=== PATIENT | female | born 1965 | race Caucasian/White ===

== ENCOUNTER 2020-10-26 15:18 | Outpatient (REF) | payer BC, SELFPAY ==
--- NOTE | ~2020-10-26 | MM_ITS ---
EXAMINATION: MM SCREENING DIGITAL BREAST TOMOSYNTHESIS, BILATERAL CLINICAL INFORMATION: Screening. Asymptomatic. Family history breast cancer, mother. 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 The lifetime risk of breast cancer based on the Tyrer-Cuzick Model is 31%. COMPARISON: Mammography: 10/23/2018 and prior studies dating back to 05/03/2009. TECHNIQUE: Digital breast tomosynthesis is performed in both the craniocaudal and mediolateral oblique views along with computer-aided detection (CAD). Synthesized 2D images are generated from the tomosynthesis. FINDINGS: The breasts are heterogeneously dense, which may obscure small masses (ACR BI-RADS breast composition Category c). There is fibronodular parenchymal pattern similar to prior studies. Nodular asymmetry medial right breast on CC view 7 cm from nipple is similar to prior studies. There is some minor scarring again noted posterior upper right breast on MLO view. Neither breast shows developing density or interval mass or architectural abnormality. No abnormal calcifications. The axilla and skin contours are unremarkable. MM/MM tomosynthesis screening BI IMPRESSION: No significant changes from prior studies. ASSESSMENT: BI-RADS 2: Benign RECOMMENDATION: 1. Routine annual mammography screening. 2. The lifetime risk of breast cancer based on the Tyrer-Cuzick Model is 31%. Additional annual adjunct screening with breast MRI may be of benefit in women with a risk score of 20% or greater and dense breast parenchymal pattern on mammography. This patient's information was entered into a reminder system with a target due date for their next mammogram.
== END 2020-10-26 15:19 | disposition home or self-care (01) ==
LOC: HO.MAMMO 15:18
PROVIDERS: Visit Provider Internal Medicine
DX: Z12.31 Encounter for screening mammogram for malignant neoplasm of breast (principal)
CPT/HCPCS: 77063; 77067

== ENCOUNTER 2020-11-24 16:20 | Outpatient (REF) | payer BC, SELFPAY ==
--- NOTE | ~2020-11-24 | MR_ITS ---
EXAMINATION: MR BREAST WITHOUT AND WITH CONTRAST, BILATERAL CLINICAL INFORMATION: High-risk screening. COMPARISON: No previous breast MRI. TECHNIQUE: Imaging was performed with a dedicated breast coil. Prior to the administration of contrast, bilateral axial T1 and bilateral axial T2 weighted sequences were obtained. After the uneventful administration of?6.5 mL of Gadavist, dynamic contrast-enhanced VIBRANT series through the breasts in the axial plane were performed. Subtracted images were performed and reviewed. A delayed sagittal sequence through both breasts was acquired. Additionally, CAD post-processing, including maximum intensity projections, 3-D reconstructions and kinetic analysis, were performed an independent workstation and reviewed by the interpreting radiologist is a portion of this exam. FINDINGS: The patient demonstrates moderate background parenchymal enhancement. The images are limited by patient motion and technical factors. LEFT BREAST: No definite suspicious masslike or non-masslike enhancement. No abnormal skin thickening or nipple retraction. No abnormal architectural distortion. Review of the T2 weighted images demonstrates no fibrocystic changes or dilated ducts. Review of kinetic images reveals no additional findings. RIGHT BREAST: No definite suspicious masslike or non-masslike enhancement. No abnormal skin thickening or nipple retraction. No abnormal architectural distortion. Review of the T2 weighted images demonstrates no fibrocystic changes or dilated ducts. Review of kinetic images reveals no additional findings. There is no suspicious internal mammary chain or axillary adenopathy. Limited views of the chest and abdomen are unremarkable. MR/MR breast BI wo/w con IMPRESSION: Limited study. No MR specific evidence of malignancy. ASSESSMENT: LEFT BREAST: BI-RADS 1-Negative RIGHT BREAST: BI-RADS 1-Negative RECOMMENDATIONS: Clinical follow-up. Continued annual mammographic surveillance. Further breast MRI as risk factors dictate.
== END 2020-11-24 16:21 | disposition home or self-care (01) ==
LOC: HO.MRI 16:20
PROVIDERS: PCP Internal Medicine; Visit Provider Internal Medicine
DX: R92.2 Inconclusive mammogram (principal)
CPT/HCPCS: 77049; A9585

== ENCOUNTER 2022-04-03 15:51 | Outpatient (REF) | payer BC, SELFPAY ==
--- NOTE | ~2022-04-03 | MM_ITS ---
EXAMINATION: MM SCREENING DIGITAL BREAST TOMOSYNTHESIS, BILATERAL CLINICAL INFORMATION: Screening. Asymptomatic. Family history breast cancer, mother. COMPARISON: Mammography: 10/26/2020, 10/23/2018, 09/07/2017; bilateral breast MRI 11/24/2020. TECHNIQUE: Digital breast tomosynthesis is performed in both the craniocaudal and mediolateral oblique views along with computer-aided detection (CAD). Synthesized 2D images are generated from the tomosynthesis. FINDINGS: The breasts are heterogeneously dense, which may obscure small masses (ACR BI-RADS breast composition Category c). There are no significant masses, abnormal calcifications, or other abnormalities. Parenchymal pattern is similar to prior studies. There is no developing density or architectural abnormality. The axilla and skin contours are unremarkable. No significant changes. MM/MM tomosynthesis screening BI IMPRESSION: No mammographic evidence of malignancy. ASSESSMENT: BI-RADS 1: Negative RECOMMENDATION: Routine annual mammography screening. This patient's information was entered into a reminder system with a target due date for their next mammogram.
== END 2022-04-03 15:52 | disposition home or self-care (01) ==
LOC: HO.MAMMO 15:51
PROVIDERS: PCP Internal Medicine; Visit Provider Internal Medicine
DX: Z12.31 Encounter for screening mammogram for malignant neoplasm of breast (principal)
CPT/HCPCS: 77063; 77067

== ENCOUNTER 2023-04-09 15:42 | Outpatient (REF) | payer BC, SELFPAY | END 2023-04-09 15:43 | disposition home or self-care (01) | LOC: HO.MAMMO 15:42 | PROVIDERS: PCP Internal Medicine; Visit Provider Internal Medicine | DX: Z12.31 Encounter for screening mammogram for malignant neoplasm of breast (principal) | CPT/HCPCS: 77063; 77067 ==

== ENCOUNTER → 2023-04-09 16:00 | Outpatient (BNV) | payer BC, SELFPAY | PROVIDERS: PCP Internal Medicine; Visit Provider Radiology Diagnostic Radiology | DX: Z12.31 Encounter for screening mammogram for malignant neoplasm of breast (principal) | CPT/HCPCS: 77063; 77067 ==

== ENCOUNTER 2024-04-14 15:17 | Outpatient (REF) | payer BC, SELFPAY ==
--- NOTE | ~2024-04-14 | MM_ITS ---
EXAMINATION: MM SCREENING DIGITAL BREAST TOMOSYNTHESIS, BILATERAL CLINICAL INFORMATION: Screening. Asymptomatic. COMPARISON: Mammography: Comparison is made with available priors TECHNIQUE: Digital breast mammography with tomosynthesis is performed in both the craniocaudal and mediolateral oblique views along with computer-aided detection (CAD). FINDINGS: The breasts are heterogeneously dense, which may obscure small masses (ACR BI-RADS breast composition Category c). Bilateral scattered asymmetry stable dating back to 2019. There are no significant masses, abnormal calcifications, or other abnormalities. MM/MM tomosynthesis screening BI IMPRESSION: No mammographic evidence of malignancy. ASSESSMENT: BI-RADS BI-RADS 2 - Benign Findings RECOMMENDATION: Routine annual mammography screening. 1 year F/U This examination should not preclude the clinical evaluation of a suspicious palpable abnormality. This patient's information was entered into a reminder system with a target due date for their next mammogram. Electronically signed by: Annalise Muhammad DO 04/24/2024 09:38 AM [email or web address]
== END 2024-04-14 15:18 | disposition home or self-care (01) ==
LOC: HO.MAMMO 15:17
PROVIDERS: PCP Internal Medicine; Visit Provider Internal Medicine
DX: Z12.31 Encounter for screening mammogram for malignant neoplasm of breast (principal)
CPT/HCPCS: 77063; 77067

== ENCOUNTER → 2024-04-14 15:45 | Outpatient (BNV) | payer BC, SELFPAY | PROVIDERS: PCP Internal Medicine; Visit Provider Internal Medicine | DX: Z12.31 Encounter for screening mammogram for malignant neoplasm of breast (principal) | CPT/HCPCS: 77063; 77067 ==

== ENCOUNTER 2025-04-20 15:36 | Outpatient (REF) | payer BC, SELFPAY ==
--- NOTE | ~2025-04-20 | MM_ITS ---
EXAMINATION: MM SCREENING DIGITAL BREAST TOMOSYNTHESIS, BILATERAL CLINICAL INFORMATION: Screening. Asymptomatic. COMPARISON: Mammography: Comparison is made with available priors TECHNIQUE: Digital breast mammography with tomosynthesis is performed in both the craniocaudal and mediolateral oblique views along with computer-aided detection (CAD). FINDINGS: The breasts are heterogeneously dense, which may obscure small masses. Scattered bilateral asymmetries are stable. There are no significant masses, abnormal calcifications, or other abnormalities. MM/MM tomosynthesis screening BI IMPRESSION: No mammographic evidence of malignancy. ASSESSMENT: BI-RADS Category 2: Benign RECOMMENDATION: Routine annual mammography screening. 1 year F/U This examination should not preclude the clinical evaluation of a suspicious palpable abnormality. This patient's information was entered into a reminder system with a target due date for their next mammogram. Electronically signed by: Annalise Muhammad DO 04/21/2025 12:04 PM ESTELLA
--- OUTSIDE RECORDS SUMMARY | 2025-04-20 18:31 | XMS_ITS | Data Portability ---
Author Organization [facility], [facility] Address [address] [place] [address] Care Team Providers Care Brickmason Helper Name Role Phone ALEJANDRA BUNN Primary Care Provider Assessment No assessment recorded. Plan of Treatment Reminders Order Date Submit Date Provider Last Modified By Organization Details Last Modified Time Details Appointments RECHECK 15 2024 03:00P M Arnold Lundberg PA-C Not available Not available Not available Lab None recorded . Referral None recorded . Procedures None recorded . Surgeries None recorded . Imaging None recorded . Medication Orders None recorded . Patient TargetsNo targets recorded. Patient InstructionsNo instructions recorded. Reason for Referral None Reported. Results Created Date Observation Date Name Description Value Unit Range Abnormal Flag Note LastModifiedBy Organization Detail LastModifiedTime 01/19/20 24 04/03/2019 ursula dimas/kirsten ramos tic resul t No observ ation record ed. [email or web address] Not Available 12/21 02:46:25 Result Notes None recorded. Problems Name Problem SNOMED Code Status Onset Date Resolution Date Notes Provider Name and Address Organization Details Recorded Time Ganglion cyst of right wrist 795820088194 109 Active 2014 Problem Code: M67.431; Problem Code Type: ICD-10; Status: 'A'; Not Available [facility] 4 11:58:56 Idiopathi c osteoarth ritis 025814990 Active 2015 Problem Code: M18.12; Problem Code Type: ICD-10; Status: 'A'; Not Available [facility] 4 11:58:56 Problem Notes None recorded. Procedures Surgical History Date Name Laterality Status Provider Name and Address Organization Details Recorded Time 01/23/2025 Sports Knee 4&1 completed Arnold Lundberg PA-C [address], [place], [address], [facility] 01/23/2025 15:19:40 10/24/2024 Sports Knee 4&1 completed Arnold Lundberg PA-C [address], [place], [address], [facility] 10/24/2024 15:28:20 07/24/2024 Sports Knee 4&1 completed Arnold Lundberg PA-C [address], [place], [address], [facility] 07/24/2024 10:14:56 04/25/2024 Sports Knee 4&1 completed Arnold Lundberg PA-C [address], [place], [address], [facility] 04/25/2024 12:19:49 01/17/2024 Sports Knee 4&1 completed Arnold Lundberg PA-C [address], [place], [address], [facility] 01/17/2024 15:35:38 09/27/2023 Sports Knee 4&1 completed Arnold Lundberg PA-C [address], [place], [address], [facility] 09/27/2023 15:49:14 Imaging Results None recorded. Procedure Notes None recorded. Medical Equipment None Reported. Allergies Allergen ID Allergen Name Allergen Category Reaction Reaction Severity Criticality Documentation Date Start Date Code Code System Note Provider Name and Address Organization Details Recorded Time 37560 morphine sulfate medicatio n Not available Not available Not available 07/23/20232015 72814 RxNorm Aller gyRea ction : 'Skin React ion, Nause a/Vom iting /Diar vignesh' ; Not Available [facility] 12:45:11 Medications Name Sig Start Date Stop Date Status Note LastModified by Organization Details LastModified Time citalopram 40 mg tablet TAKE 1 TABLET BY MOUTH EVERY DAY active Not Available Not Available No t Available ondansetron HCl 8 mg tablet TAKE 1 TABLET BY MOUTH THREE TIMES DAILY NEEDED FOR NAUSEA active Not Available Not Available No t Available acetaminophen 300 mg-codeine 30 mg tablet TAKE 2 TABLETS BY MOUTH TWICE DAILY NEEDED FOR PAIN active Not Available Not Available No t Available pantoprazole 40 mg tablet,delayed release active Not Available Not Available Not Available pseudoephedrine -guaifenesin ER 80-700 mg tablet,extended release 1 tab qid prn pain 2010 active Statu s: 'Curr ent'; Not Available Not Available Not Available lisinopril 5 mg tablet active Not Available Not Available Not Available ergocalciferol (vitamin D2) 1,250 mcg (50,000 unit) capsule TAKE 1 CAPSULE BY MOUTH 1 TIME A WEEK active Not Available Not Available No t Available nitrofurantoin monohydrate/mac rocrystals 100 mg capsule active Not Available Not Available N ot Available oxycodone KSy-uvxhdbfuz-B SA 1 PO QID PRN PAIN(GIV EN AT [facility] AT TIME OF SURGERY 01/18/16) 2015 active Statu s: 'Curr ent'; Not Available Not Available Not Available Vitals Date Recorded Body height Body mass index (BMI) Body weight Provider Name and Address Organization Details Last Updated DateTime 07/24/2024 162.56 cm 23.5 kg/m2 71746.15 g [facility] 07/24/2024 10:04:53 Date Recorded Body height Body mass index (BMI) Body weight Provider Name and Address Organization Details Last Updated DateTime 10/24/2024 162.56 cm 23.2 kg/m2 17091.97 g [facility] 10/24/2024 15:08:45 Date Recorded Body height Provider Name an d Address Organization Details Last Updated DateTime 01/17/2024 165.1 cm CONCEPCION ARSHAD [facility] 01/17/2024 15:08:53 Date Recorded Body height Body mass index (BMI) Body weight Provider Name and Address Organization Details Last Updated DateTime 01/23/2025 162.56 cm 23.2 kg/m2 47377.97 g [facility] 01/23/2025 14:59:05 Date Recorded Body height Provider Name an d Address Organization Details Last Updated DateTime 04/25/2024 165.1 cm Maeve Yun [facility] 04/25/2024 15:27:28 Social History None recorded. Functional Status None recorded. Mental Status None recorded. Family History Nothing Reported. Medical History Condition Response Arthritis Y Headaches Y Hypertension Y Gynecological HistoryNo gynecological history recorded. Obstetrics History GPAL:G 0 P 0 0 0 0 Past Encounters Encounter ID Performer Location Encounter Start Date Encounter Closed Date Diagnosis/Indication Diagnosis SNOMED-CT Code Diagnosis ICD10 Code Diagnosis IMO Codes Diagnosis Note [id number] [facility] [address] [place] [address] 09/27/2023 15:09:45 10/19/2023 11:37:22 Osteoarthritis of right knee joint [id number] 14928 M17.11 You have been provided with a cortisone injection in order to reduce the pain and inflammati on that you are experienci ng. The injection consists of two medication s. Cortisone (an anti-infla mmatory that will take 48-72 hours to take effect) and Lidocaine (a numbing agent that will last 2-3 hours). Please note that not everyone will have a lasting response following the injection. PATIENT INSTRUCTIO NSOnce the Lidocaine wears off, you may have an increase in your pain. I recommend icing the affected area for 20 minutes 3-4 times per day.It is recommende d that you refrain from any high level activities using the joint or limb that was injected for approximat monica 24-48 hours. Normal day-to-day activities are generally not a problem.PO SSIBLE SIDE EFFECTSInd ividuals with dark complexion s may experience some skin discolorat ion locally at the site of the injection. There is the possibilit y of an increase in discomfort within 48 hours following the injection. This is called a f lare . To help minimize the chances of this, please see the post-injec tion instructio ns above.Ther e is a less than 1% chance of an infection. If you notice any signs of infection (redness, warmth, drainage, fever greater than 100 degrees) please call our office or contact us through the portal [facility]. [id number] [facility] [address] [place] [address] 01/17/2024 15:01:37 02/12/2024 12:32:15 Osteoarthritis of right knee joint 4000301777 93795 M17.11 You have been provided with a cortisone injection in order to reduce the pain and inflammati on that you are experienci ng. The injection consists of two medication s. Cortisone (an anti-infla mmatory that will take 48-72 hours to take effect) and Lidocaine (a numbing agent that will last 2-3 hours). Please note that not everyone will have a lasting response following the injection. PATIENT INSTRUCTIO NSOnce the Lidocaine wears off, you may have an increase in your pain. I recommend icing the affected area for 20 minutes 3-4 times per day.It is recommende d that you refrain from any high level activities using the joint or limb that was injected for approximat monica 24-48 hours. Normal day-to-day activities are generally not a problem.PO SSIBLE SIDE EFFECTSInd ividuals with dark complexion s may experience some skin discolorat ion locally at the site of the injection. There is the possibilit y of an increase in discomfort within 48 hours following the injection. This is called a f lare . To help minimize the chances of this, please see the post-injec tion instructio ns above.Ther e is a less than 1% chance of an infection. If you notice any signs of infection (redness, warmth, drainage, fever greater than 100 degrees) please call our office or contact us through the portal [facility]. [id number] [facility] [address] [place] [address] 04/25/2024 14:51:44 05/16/2024 13:58:24 Osteoarthritis of right knee joint [id number] 55743 M17.11 You have been provided with a cortisone injection in order to reduce the pain and inflammati on that you are experienci ng. The injection consists of two medication s. Cortisone (an anti-infla mmatory that will take 48-72 hours to take effect) and Lidocaine (a numbing agent that will last 2-3 hours). Please note that not everyone will have a lasting response following the injection. PATIENT INSTRUCTIO NSOnce the Lidocaine wears off, you may have an increase in your pain. I recommend icing the affected area for 20 minutes 3-4 times per day.It is recommende d that you refrain from any high level activities using the joint or limb that was injected for approximat monica 24-48 hours. Normal day-to-day activities are generally not a problem.PO SSIBLE SIDE EFFECTSInd ividuals with dark complexion s may experience some skin discolorat ion locally at the site of the injection. There is the possibilit y of an increase in discomfort within 48 hours following the injection. This is called a f balwinder . To help minimize the chances of this, please see the post-injec tion instructio ns above.Ther e is a less than 1% chance of an infection. If you notice any signs of infection (redness, warmth, drainage, fever greater than 100 degrees) please call our office or contact us through the portal [facility]. [id number] [facility] [address] [place] [address] 07/24/2024 09:41:50 08/08/2024 14:11:24 Osteoarthritis of right knee joint [id number] 12305 M17.11 You have been provided with a cortisone injection in order to reduce the pain and inflammati on that you are experienci ng. The injection consists of two medication s. Cortisone (an anti-infla mmatory that will take 48-72 hours to take effect) and Lidocaine (a numbing agent that will last 2-3 hours). Please note that not everyone will have a lasting response following the injection. PATIENT INSTRUCTIO NSOnce the Lidocaine wears off, you may have an increase in your pain. I recommend icing the affected area for 20 minutes 3-4 times per day.It is recommende d that you refrain from any high level activities using the joint or limb that was injected for approximat monica 24-48 hours. Normal day-to-day activities are generally not a problem.PO SSIBLE SIDE EFFECTSInd ividuals with dark complexion s may experience some skin discolorat ion locally at the site of the injection. There is the possibilit y of an increase in discomfort within 48 hours following the injection. This is called a f lare . To help minimize the chances of this, please see the post-injec tion instructio ns above.Ther e is a less than 1% chance of an infection. If you notice any signs of infection (redness, warmth, drainage, fever greater than 100 degrees) please call our office or contact us through the portal [facility]. [id number] [facility] [address] [place] [address] 10/24/2024 14:47:47 11/05/2024 08:57:06 Osteoarthritis of right knee joint [id number] 71859 M17.11 You have been provided with a cortisone injection in order to reduce the pain and inflammati on that you are experienci ng. The injection consists of two medication s. Cortisone (an anti-infla mmatory that will take 48-72 hours to take effect) and Lidocaine (a numbing agent that will last 2-3 hours). Please note that not everyone will have a lasting response following the injection. PATIENT INSTRUCTIO NSOnce the Lidocaine wears off, you may have an increase in your pain. I recommend icing the affected area for 20 minutes 3-4 times per day.It is recommende d that you refrain from any high level activities using the joint or limb that was injected for approximat monica 24-48 hours. Normal day-to-day activities are generally not a problem.PO SSIBLE SIDE EFFECTSInd ividuals with dark complexion s may experience some skin discolorat ion locally at the site of the injection. There is the possibilit y of an increase in discomfort within 48 hours following the injection. This is called a f lare . To help minimize the chances of this, please see the post-injec tion instructio ns above.Ther e is a less than 1% chance of an infection. If you notice any signs of infection (redness, warmth, drainage, fever greater than 100 degrees) please call our office or contact us through the portal [facility]. [id number] [facility] [address] [place] [address] 01/23/2025 14:50:44 02/03/2025 14:49:26 Osteoarthritis of right knee joint [id number] 49016 M17.11 You have been provided with a cortisone injection in order to reduce the pain and inflammati on that you are experienci ng. The injection consists of two medication s. Cortisone (an anti-infla mmatory that will take 48-72 hours to take effect) and Lidocaine (a numbing agent that will last 2-3 hours). Please note that not everyone will have a lasting response following the injection. PATIENT INSTRUCTIO NSOnce the Lidocaine wears off, you may have an increase in your pain. I recommend icing the affected area for 20 minutes 3-4 times per day.It is recommende d that you refrain from any high level activities using the joint or limb that was injected for approximat monica 24-48 hours. Normal day-to-day activities are generally not a problem.PO SSIBLE SIDE EFFECTSInd ividuals with dark complexion s may experience some skin discolorat ion locally at the site of the injection. There is the possibilit y of an increase in discomfort within 48 hours following the injection. This is called a f lare . To help minimize the chances of this, please see the post-injec tion instructio ns above.Ther e is a less than 1% chance of an infection. If you notice any signs of infection (redness, warmth, drainage, fever greater than 100 degrees) please call our office or contact us through the portal [facility]. Health Concerns Section Related Observation LastModified by Organization Detai ls LastModified Time None Recorded Concern Status LastModified by Organization Details LastModified Time None Recorded Advance Directives Directive None Recorded Payers Insurance Date Sequence Insurance Name Policy Number Policy Barrera Covered Member ID Barrera Member ID Guarantor Name 02/03/2025 1 PETE-DELGADO (PPO) [id number] Denise [facility] [id number] Denise Kaminski Notes Date Note Type Note Provider Name and Address Organization Details Recorded Time 01/17/2024 text/html I am seeing the patient today under the supervision of Who was available but who did not see the patient. HPI: Patient comes in for recheck of right knee pain. Has known osteoarthritis in the lateral compartment of the knee(s). Been treated conservatively with cortisone injection to this point with 8 weeks relief of symptoms. No new injury or modalities. Past family, medical, social history and review of systems has been reviewed, updated and is located in the patient s chart. Examination:The patient is well appearing and in no apparent distress. Alert and oriented x3. Vital signs per intake sheet. Examination of the right knee reveals no effusion erythema or warmth. Decreased range of motion. Lower extremity valgus deformity. Point tender over the lateral joint line. Calf soft and nontender. 4+/5 strength of knee flexion extension. Impression: Osteoarthritis Plan: Nature of the diagnosis discussed with the patient today. Both surgical and nonsurgical options were reviewed. This point recommend a repeat cortisone injection. Patient agreed. See prodecure note. Follow-up with us in 3 months for discussion of continued conservative management versus total joint arthroplasty. Arnold Lundberg PA-C [address] [place] [address] [place] [address], [address], [facility] 01/17/2024 15:35:59 04/25/2024 text/html I am seeing the patient today under the supervision of Who was available but who did not see the patient. HPI: Patient comes in for recheck of right knee pain. Has known osteoarthritis in the lateral compartment of the knee(s). Been treated conservatively with cortisone injection to this point with 8 weeks relief of symptoms. No new injury or modalities. Past family, medical, social history and review of systems has been reviewed, updated and is located in the patient s chart. Examination:The patient is well appearing and in no apparent distress. Alert and oriented x3. Vital signs per intake sheet. Examination of the right knee reveals no effusion erythema or warmth. Decreased range of motion. Lower extremity valgus deformity. Point tender over the lateral joint line. Calf soft and nontender. 4+/5 strength of knee flexion extension. Impression: Osteoarthritis Plan: Nature of the diagnosis discussed with the patient today. Both surgical and nonsurgical options were reviewed. This point recommend a repeat cortisone injection. Patient agreed. See prodecure note. Follow-up with us in 3 months for discussion of continued conservative management versus total joint arthroplasty. Arnold Lundberg PA-C [address], [place], [address], [facility] 04/25/2024 15:36:47 07/24/2024 text/html I am seeing the patient today under the supervision of Dr. Crawford Who was available but who did not see the patient. HPI: Patient comes in for recheck of right knee pain. Has known osteoarthritis in the lateral compartment of the knee(s). Been treated conservatively with cortisone injection to this point with 8 weeks relief of symptoms. No new injury or modalities. Past family, medical, social history and review of systems has been reviewed, updated and is located in the patient s chart. Examination:The patient is well appearing and in no apparent distress. Alert and oriented x3. Vital signs per intake sheet. Examination of the right knee reveals no effusion erythema or warmth. Decreased range of motion. Lower extremity valgus deformity. Point tender over the lateral joint line. Calf soft and nontender. 4+/5 strength of knee flexion extension.Impression : Osteoarthritis Plan: Nature of the diagnosis discussed with the patient today. Both surgical and nonsurgical options were reviewed. This point recommend a repeat cortisone injection. Patient agreed. See prodecure note. Follow-up with us in 3 months for discussion of continued conservative management versus total joint arthroplasty. Arnold Lundberg PA-C [address], [place], [address], [facility] 07/24/2024 10:15:27 10/24/2024 text/html I am seeing the patient today under the supervision of Dr. Crawford Who was available but who did not see the patient. HPI: Patient comes in for recheck of right knee pain. Has known osteoarthritis in the lateral compartment of the knee(s). Been treated conservatively with cortisone injection to this point with 12 weeks relief of symptoms. No new injury or modalities. Past family, medical, social history and review of systems has been reviewed, updated and is located in the patient s chart. Examination:The patient is well appearing and in no apparent distress. Alert and oriented x3. Vital signs per intake sheet. Examination of the right knee reveals no effusion erythema or warmth. Decreased range of motion. Lower extremity valgus deformity. Point tender over the lateral joint line. Calf soft and nontender. 4+/5 strength of knee flexion extension.Impression : Osteoarthritis Plan: Nature of the diagnosis discussed with the patient today. Both surgical and nonsurgical options were reviewed. This point recommend a repeat cortisone injection. Patient agreed. See prodecure note. Follow-up with us in 3 months for discussion of continued conservative management versus total joint arthroplasty. Arnold Lundberg PA-C [address], [place], [address], [facility] 10/24/2024 15:28:41 01/23/2025 text/html I am seeing the patient today under the supervision of Dr. Crawford Who was available but who did not see the patient. HPI: Patient comes in for recheck of right knee pain. Has known osteoarthritis in the lateral compartment of the knee(s). Been treated conservatively with cortisone injection to this point with 12 weeks relief of symptoms. No new injury or modalities. Past family, medical, social history and review of systems has been reviewed, updated and is located in the patient s chart. Examination:The patient is well appearing and in no apparent distress. Alert and oriented x3. Vital signs per intake sheet. Examination of the right knee reveals no effusion erythema or warmth. Decreased range of motion. Lower extremity valgus deformity. Point tender over the lateral joint line. Calf soft and nontender. 4+/5 strength of knee flexion extension.Impression : Osteoarthritis Plan: Nature of the diagnosis discussed with the patient today. Both surgical and nonsurgical options were reviewed. This point recommend a repeat cortisone injection. Patient agreed. See prodecure note. Follow-up with us in 3 months for discussion of continued conservative management versus total joint arthroplasty. Arnold Lundberg PA-C [address], [place], [address], [facility] 01/23/2025 15:19:48 OBGyn Episode No OBEpisode recorded.
--- OUTSIDE RECORDS SUMMARY | 2025-04-20 18:31 | XMS_ITS | Continuity of Care Document ---
Author Organization [facility], MARCELA Atkinson 2nd floor Address [address] [place] [address] Care Team Providers Care Golf Course Superintendent Name Role Phone ALEJANDRA BUNN Primary Care [...] instructions recorded. Reason for Referral None Reported. Problems Name Problem SNOMED Code Status Onset Date Resolution Date Notes Provider Name and Address Organization Details Recorded Time Ganglion cyst of right wrist 382781410088 109 Active 2014 Problem Code: M67.431; Problem Code Type: ICD-10; Status: 'A'; Not Available Formerly [facility] 11:58:56 Idiopathi c osteoarth ritis [id number] Active 2015 Problem Code: M18.12; Problem Code Type: ICD-10; Status: 'A'; Not Available Formerly [facility] 11:58:56 Problem Notes None recorded. Procedures Surgical History Date Name Laterality Status Provider Name and Address Organization Details Recorded Time 01/23/2025 Sports Knee 4&1 completed Arnold Lundberg PA-C [address], [place], [address], [facility] 01/23/2025 15:19:40 10/24/2024 Sports Knee 4&1 completed Arnold Lundberg PA-C [address], [place], [address], [facility] 10/24/2024 15:28:20 07/24/2024 Sports Knee 4&1 completed Arnold Lundberg PA-C [address], [place], [address], [facility] 07/24/2024 10:14:56 04/25/2024 Sports Knee 4&1 completed Arnodl Lundberg PA-C [address], [place], [address], [facility] 04/25/2024 12:19:49 01/17/2024 Sports Knee 4&1 completed Arnold Lundberg PA-C [address], [place], [address], [facility] 01/17/2024 15:35:38 09/27/2023 Sports Knee 4&1 completed Arnold Lundberg PA-C [address], [place], [address], [facility] 09/27/2023 15:49:14 Imaging Results None recorded. Procedure Notes None recorded. Medical Equipment None Reported. Allergies Allergen ID Allergen Name Allergen Category Reaction Reaction Severity Criticality Documentation Date Start Date Code Code System Note Provider Name and Address Organization Details Recorded Time 67472 morphine sulfate medicatio n Not available Not available Not available 07/23/20232015 02577 RxNorm Aller gyRea ction : 'Skin React ion, Nause a/Vom iting /Diar vignesh' ; Not Available [facility] 12:45:11 Medications Name Sig Start Date Stop [...] Available Not Available N ot Available oxycodone SXa-gfxtiwgul-P SA 1 PO QID PRN PAIN(GIV EN AT [facility] AT TIME OF SURGERY 01/18/16) 2015 active Statu s: 'Curr ent'; Not Available Not Available Not Available Vitals Date Recorded Body height Body mass index (BMI) Body weight Provider Name and Address Organization Details Last Updated DateTime 01/23/2025 162.56 cm 23.2 kg/m2 27977.97 g Maeve Yun [place] - [facility] 01/23/2025 14:59:05 Social History None recorded. Functional Status None [...] ICD10 Code Diagnosis IMO Codes Diagnosis Note [id number] SAROJ Mccain 2nd floor [address] [place] [address] 01/23/2025 14:50:44 02/03/2025 14:49:26 Osteoarthritis of right knee joint [id number] 47769 M17.11 You have been provided with a [...] by Organization Details LastModified Time None Recorded Payers Encounter Date Sequence Insurance Name Policy Number Policy Barrera Covered Member ID Barrera Member ID Guarantor Name 01/23/2025 1 GRADY (PPO) [id number] Denise Galindo rdisco [id number] Denise Porterco Notes Date Note Type Note Provider Name and Address Organization Details Recorded Time 01/23/2025 text/html I am seeing the patient [...] total joint arthroplasty. Arnold Lundberg PA-C [address] [facility] [address], [place], [address], [facility] 01/23/2025 15:19:48 OBGyn Episode No OBEpisode recorded.
--- OUTSIDE RECORDS SUMMARY | 2025-04-20 18:31 | XMS_ITS | Clinical Summary ---
Author Organization [facility] Address [address] [facility] [address] [place] [address] Phone Care Team Providers Care Auto Body Estimator Name Role Phone Daniel Singer MD Primary Care Provider [phone] Daniel Singer MD Unavailable [phone] Shivani Rasheed MD Unavailable Israel Jones MD Unavailable Allergies Active Allergy Reactions Criticality Noted Date Comments Celecoxib Diarrhea 11/08/2021 Doxycycline Hyclate Nausea and/or Vomiting 01/2019 Nsaids (Non-Steroidal Anti-Inflammatory Drug) GI Upset 05/09/2021 Medications cholecalciferol (VITAMIN D3) 2,000 unit tablet Take 2,000 Units by mouth daily. Active ondansetron (ZOFRAN) 8 MG tabletIndications: Nausea TAKE 1 TABLET(8 MG) BY MOUTH THREE TIMES DAILY NEEDED FOR NAUSEA 10 tablet 11 06/02/19 25 Active acetaminophen-code ine (TYLENOL #3) 300-30 mg per tabletIndications: Chronic nonintractable headache, unspecified headache type,Chronic bilateral low back pain without sciatica TAKE 2 TABLETS BY MOUTH TWICE DAILY NEEDED FOR PAIN 120 tablet 1 03/21/20 25 Active lisinopril (PRINIVIL,ZESTRIL) 5 MG tabletIndications: Essential hypertension TAKE 1 TABLET(5 MG) BY MOUTH DAILY 30 tablet 2 03/23/20 25 Active citalopram (CELEXA) 40 MG tablet TAKE 1 TABLET BY MOUTH EVERY DAY 30 tablet 11 03/23/20 25 Active pantoprazole (PROTONIX) 40 MG tabletIndications: Gastroesophageal reflux disease TAKE 1 TABLET(40 MG) BY MOUTH TWICE DAILY 60 tablet 11 03/23/20 25 Active pantoprazole (PROTONIX) 40 MG tabletIndications: Gastroesophageal reflux disease TAKE 1 TABLET(40 MG) BY MOUTH TWICE DAILY 180 tablet 3 03/18/20 24 025 Discontinued citalopram (CELEXA) 40 MG tablet take 1 tablet by mouth every day 90 tablet 3 03/18/20 24 025 Discontinued lisinopril (PRINIVIL,ZESTRIL) 5 MG tabletIndications: Essential hypertension TAKE 1 TABLET(5 MG) BY MOUTH DAILY 90 tablet 3 03/18/20 24 025 Discontinued Active Problems Problem Noted Date Diagnosed Date Periodic headache syndrome, not intractable 07/19 Multinodular goiter 10/03/2023 Overview (10/27/2024): 2 subcm nodules, on repeat 2003, only one noted; 2015 - 1.6 cm left nodule w/o suspicious features; 2021: left 1.4 cm nodule left, 0.8 cm nodule right; stable 2024 Assessment & Plan (10/27/2024 2:54 PM EDT): No compressive symptoms. Stable exam. Ultrasound w/o suspicious changes. Will continue to monitor exam & periodic u/s (given stability does not need follow up in 1 yr) Assessment & Plan (10/03/2023 1:57 PM EDT): No compressive symptoms. Stable exam. Stable u/s 2021. Will repeat ultrasound prior to follow up. Essential hypertension 06/25/2017 Gastroesophageal reflux disease 06/25/2017 Headache 06/25/2017 Hypertension 06/25/2017 Hyperlipidemia 06/25/2017 Mixed hyperlipidemia 06/25/2017 Absolute anemia 06/25/2017 Increased frequency of urination 06/25/2017 Hyperthyroidism Overview (10/03/2023): intermittent, minimal, I-123 scan 2006, when hyperthyroid - diffuse, homogeneous uptake 14%, TSH receptor & TPO antibody - negative 2003, tech scan w/ heterogeneous uptake, ? hot nodule left Assessment & Plan (10/27/2024 2:54 PM EDT): Intermittent subclinical hyperthyroidism, longstanding, stable. Last TSH normal. Will continue to monitor. Assessment & Plan (10/03/2023 1:57 PM EDT): Intermittent subclinical hyperthyroidism, longstanding, stable. Will continue to monitor. Encounters Date Type Department Care Team Description 04/03/2025 3:30 PM EST Office Visit [facility] Internal [facility] [address] [place] [address] Daniel Singer MD Need for prophylactic vaccination and inoculation against influenza (Primary Dx); Essential hypertension; Gastroesophageal reflux disease without esophagitis; Multinodular goiter 04/02/2025 Documentation [facility] [address] [place] [address] Daniel Singer MD 03/21/2025 Refill [facility] [address] [place] [address] Daniel Singer MD Medication Refill 03/11/2025 Refill [facility] [address] [place] [address] Daniel Singer MD Medication Refill 02/19/2025 Telephone [facility] [address] [place] [address] Daniel Singer MD Medication Refill 02/12/2025 Refill [facility] [address] [place] [address] Daniel Singer MD Medication Refill from Last 3 Months Immunizations Immunization Administration Dates Next Due COVID-19 (Pre-03/12) Pfizer Vaccine, mRNA, PF 10/08/2020,2020 INFLUENZA, SPLIT VIRUS, TRIVALENT PF 04/03/2025, 02/11/2016 Influenza Quadrivalent Prese rvative Free IM 02/28/2021,02/14/2020,02/18/2019,2017 Influenza Quadrivalent w/ Preservative IM 03/21/2017 Influenza, Unspecified Formulation 02/26/2024, Pneumococcal conjugate PCV20 04/14/2024 Td (adult) 5 Lf Tetanus Toxo id, PF, Adsorbed 11/20/2023,05/21/2006 Tdap 04/14/2013 Family History Medical History Relation Comments Diabetes Father Heart disease Father Thyroid disease Father hypothyroid Diabetes Maternal Grandfather type 1 DM Breast cancer Mother COPD Mother Heart disease Mother Heart failure Mother Thyroid disease Paternal Aunt hypothyroid Diabetes Paternal Grandmother Relation Status Comments Father (Age 71) Maternal Grandfather Mother (Age 85) at 85 y/o d/t heart failure and respirtory failure Paternal Aunt Paternal Grandmother Social History Tobacco Use Types Packs/Day Years Used Date Smoking Tobacco: Never Smokeless Tobacco: Never Alcohol Use Standard Drinks/Week Comments No 0 (1 standard drink = 0.6 oz pur e alcohol) Child or Family Care Answer Date Record ed Do you have problems with on e of the following making it difficult for you to work, study, or receive health care? No 11/24/2024 Education Answer Date Recorded Are you interested in help w ith more adult education (for example, completing high school, GED, job training, learning the Telugu language, technical skills, or developing parenting skills)? No 11/24/2024 Are you concerned about learning? Not on file 11/24/2024 No 11/24/2024 Yes 11/24/2024 Food Answer Date Recorded Within the past 6 months we worried whether our food would run out before we got money to buy more. Never True 11/24/2024 Within the past 6 months the food we bought just didn't last and we didn't have enough money to get more. Never True Residential Stability Answer Date Recor ded What is your housing situation today? I have melissa sing 11/24/2024 How many times have you move d in the past 12 months? Zero (I did not move) 11/24/2024 Paying for Meds Answer Date Recorded Do you have trouble paying for medicines? No 11/24/2024 Paying Utility Bills Answer Date Record ed Do you have trouble paying your heating or elect ricity bill? No 11/24/2024 Transportation Answer Date Recorded Has the lack of transportati on kept you from medical appointments or from getting medications? No 11/24/2024 Unemployment Answer Date Recorded Are you currently unemployed or working on a part-time or temporary basis, and looking for work? No 11/08/2021 Digital Access Answer Date Recorded No 11/24/2024 Yes 11/24/2024 Do you have reliable internet access at home? Ye s 11/24/2024 Do you have a device (e.g., phone, tablet, computer) with a working camera? Yes 11/24/2024 Intimate Partner Violence Answer Date R ecorded Denied Basic Needs Not on file 11/24/2024 In the past 12 months have y ou been in a relationship with a person who hurts, threatens, or tries to control you? No 11/24/2024 Worried food would run out Not on file 11/24 In the past 12 months have y ou been in a relationship with a person who hurts, threatens, or tries to control you? No 11/24/2024 Comments No Sex and Gender Information Value Date Recorded Sex Assigned at Not on file Legal Sex Female 9:39 PM EDT Gender Identity Not on file Sexual Orientation Not on file Last Filed Vital Signs Vital Sign Reading Time Taken Comments Blood Pressure 118/84 04/03/2025 3:42 PM EST Pulse 82 04/03/2025 3:42 PM EST Temperature 36.7 C (98 F) 04/03/2025 3:42 PM EST Respiratory Rate 14 04/03/2025 3:42 PM EST Oxygen Saturation 100% 04/03/2025 3:42 PM EST Inhaled Oxygen Concentration - - Weight 61.4 kg (135 lb 6.4 oz) 04/03/2025 3:42 P M EST Height 160.7 cm (5' 3.27 ) 04/03/2025 3:42 PM ES T Body Mass Index 23.78 04/03/2025 3:42 PM EST Plan of Treatment Upcoming Encounters Date Type Department Care Team (Late st Contact Info) Description 09/11/2025 3:30 PM EDT Office Visit [facility] Internal [facility] [address] [place] [address] Daniel Singer MD [address] [place] [address] [email or web address] 11/02/2025 3:20 PM EDT Office Visit [facility] [place] [address] [place] [address] Shivani Rasheed MD [address] [place] [address] [email or web address] 11/25/2025 3:20 PM EDT Office Visit [facility] [address] [place] [address] Jose Conti PA-C [address] [place] [address] [email or web address] Health Maintenance Due Date Last Done Comments COLOGUARD 09/18/2011 FIT TEST 09/18/2011 FOBT 09/18/2011 SIGMOIDOSCOPY 09/18/2011 VIRTUAL COLONOSCOPY 09/18/2011 ZOSTER VACCINES (1 of 2) 2016 COVID-19 VACCINE ( season) 2025 04/10/2023, 09/09/2021, 04/13/2021, Additional history exists CREATININE LEVEL 04/06/2025 04/06/2024, , 07/09/2023, Additional history exists POTASSIUM LEVEL 04/06/2025 04/06/2024, 06/21, 11/19/2022, Additional history exists BLOOD PRESSURE 10/01/2025 04/03/2025 DEPRESSION SCREENING 11/24/2025 11/24/2024 MAMMOGRAM 04/14/2026 04/14/2024, 03/22, 04/09/2023, Additional history exists PAP SMEAR 07/16/2026 07/16/2023, 06/22, 07/07/2021, Additional history exists COLONOSCOPY 08/12/2027 08/11/2022, 07/23/2015 COLORECTAL CANCER SCREENING 08/12/2027 LIPID PANEL 04/06/2029 04/06/2024, 03/21, 04/06/2024, Additional history exists Adult Td,Tdap Booster 11/19/2033 11/20/2023 , 04/14/2013, 05/21/2006 RSV VACCINE (1 - 1-dose 75+ series) 2041 HEPATITIS C SCREENING Completed 11/14/2020 HIV ONE-TIME SCREENING (18-65 YEARS) Completed 11/20/2020 PNEUMOCOCCAL VACCINES (50+ years) Completed 04/14/2024 INFLUENZA VACCINE Completed 04/03/2025, , 02/28/2021, Additional history exists SMOKING STATUS SCREENING (Once After 26 Yrs) Completed 04/03/2025 HEPATITIS A VACCINES Aged Out No long er eligible based on patient's age to complete this topic HIB VACCINES Aged Out No longer eligi ble based on patient's age to complete this topic IPV VACCINES Aged Out No longer eligi ble based on patient's age to complete this topic MENINGOCOCCAL VACCINES (ACWY) Aged Out No longer eligible based on patient's age to complete this topic MENINGOCOCCAL VACCINES (B) Aged Out N o longer eligible based on patient's age to complete this topic Medical Devices Not on file Procedures Procedure Name Priority Date/Time Associated Diagnosis Comments MAMMOGRAPHY Routine 04/14/2024 7:54 AM EST OUTSIDE HDL Routine 04/06/2024 OUTSIDE POTASSIUM LEVEL Routine 04/06/2024 OUTSIDE SERUM CREATININE LEVEL Routine 04/06/2024 HM PAP SMEAR FOR RESULT ENTRY ONLY Routine 07/16/2023 COLONOSCOPY FOR RESULT ENTRY ONLY Routine 08/11/2022 OUTSIDE HIV Routine 11/20/2020 from Last 3 Months or Most Recently Relevant to Health Maintenance Results * HM MAMMOGRAPHY FOR RESULT ENTRY ONLY (04/14/2024 7:54 AM EST) Result [facility] Provider HEALTH MAINTENANCE Final Result * Outside Potassium Level (04/06/2024) Potassium level - External 4.5 3.4 - 5.0 mmol/L Result [facility] Provider LAB BLOOD ORDERABLES Evelyn l Result * Outside Serum Creatinine Level (04/06/2024) Creatinine, serum - External 0.83 0.8 - 1.3 mg/dL Result [facility] Provider LAB BLOOD ORDERABLES Evelyn l Result * Outside HDL (04/06/2024) HDL - External 48 40 - 80 mg/dL Result [facility] Provider LAB BLOOD ORDERABLES Evelyn l Result * HM PAP SMEAR FOR RESULT ENTRY ONLY (07/16/2023) HM Pap smear NILM, HPV neg Result [facility] Provider HEALTH MAINTENANCE Final Result * HM COLONOSCOPY FOR RESULT ENTRY ONLY (08/11/2022) Result [facility] Daniel Singer MD HEALTH MAINTENANCE Edited Res ult - Final * OUTSIDE HIV TEST (11/20/2020) HIV - External Neg Result [facility] Provider LAB BLOOD ORDERABLES Evelyn l Result from Last 3 Months or Most Recently Relevant to Health Maintenance Insurance [facility] OUT STATE PPO BLUE CROSS OUT OF STATE PPO BLUE CROSS OUT OF STATE PPO BLUE CROSS OUT OF STATE PPO BLUE CROSS OUT OF [facility] PPO BLUE CROSS OUT OF [facility] PPO BLUE CROSS OUT OF [facility] PPO BLUE CROSS OUT OF STATE PPO BLUE CROSS OUT OF STATE PPO Care Teams Auto Body Estimator Relationship Specialty Start Date End Date Daniel Singer MD [address] [place] [address] [email or web address] PCP - General 03/08/17 Daniel Singer MD [address] [place] [address] Insurance Assigned Provider 08/25/23 Shivani Rasheed MD [address] [place] [id number] Endocrinology 07/07/19 Israel Jones MD [address] [place] [address] Obstetrics and Gynecology 11/15/23 Additional Source Comments The information contained in this document represents components of the legal health record. It is not the complete legal health record.[facility]
--- OUTSIDE RECORDS SUMMARY | 2025-04-20 18:31 | XMS_ITS | Clinical Summary ---
Author Organization [facility] Address [address] [place] [address] Care Team Providers Care Wood Fence Installer Name Role Phone Daniel Singer MD Primary Care Provider [phone] Allergies No known active allergies Medications Medication Sig Dispensed Refills Start Date End Date Status lisinopril (PRINIVIL,ZESTRIL) tablet 10 mg Take 10 mg by mouth daily. 0 Active pantoprazole (PROTONIX) 40 MG tablet Take 40 mg by mouth every morning on an empty stomach. 0 Active citalopram (CELEXA) 40 MG tablet Take 40 mg by mouth daily. 0 Active Active Problems No known active problems Social History Tobacco Use Types Packs/Day Years Used Date Smoking Tobacco: Never Smokeless Tobacco: Never Alcohol Use Standard Drinks/Week Comments No 0 (1 standard drink = 0.6 oz pur e alcohol) Sex and Gender Information Value Date Recorded Sex Assigned at Not on file Gender Identity Not on file Sexual Orientation Not on file Last Filed Vital Signs Vital Sign Reading Time Taken Comments Blood Pressure 109/73 12/29/2016 3:46 PM EDT Pulse 79 12/29/2016 3:46 PM EDT Temperature - - Respiratory Rate - - Oxygen Saturation - - Inhaled Oxygen Concentration - - Weight 70.8 kg (156 lb) 12/29/2016 3:46 PM EDT Height 165.1 cm (5' 5 ) 12/29/2016 3:46 PM EDT Body Mass Index 25.96 12/29/2016 3:46 PM EDT Plan of Treatment Health Maintenance Due Date Last Done Comments Hepatitis B Vaccines (1 of 3 - 3-dose series) 1966 Hepatitis C Screening 1966 COVID-19 Vaccine (#1) 03/19/1967 Depression Screening 1978 Preventative Health Evaluation 1984 DTap / Tdap / Td (1 - Tdap) 1985 Cervical Cancer Screening (P ap Smear) 09/18/1987 Colon Cancer Screening (Colonoscopy) 09/18/2011 Breast Cancer Screening (Mammogram) 2016 Shingrix-Zoster Vaccine (1 of 2) 2016 Influenza Vaccine (#1) 2025 Pneumococcal Vaccine Aged Out No long er eligible based on patient's age to complete this topic RSV Ped < 20 months Aged Out No longe r eligible based on patient's age to complete this topic Care Teams Wood Fence Installer Relationship Specialty Start Date End Date Daniel Singer MD [address] [place] [address] PCP - General Internal Medicine 12/04/16
== END 2025-04-20 15:37 | disposition home or self-care (01) ==
LOC: HO.MAMMO 15:36
PROVIDERS: PCP Internal Medicine; Visit Provider Internal Medicine
DX: Z12.31 Encounter for screening mammogram for malignant neoplasm of breast (principal)
CPT/HCPCS: 77063; 77067

== ENCOUNTER → 2025-04-20 15:45 | Outpatient (BNV) | payer BC, SELFPAY | PROVIDERS: PCP Internal Medicine; Visit Provider Internal Medicine | DX: Z12.31 Encounter for screening mammogram for malignant neoplasm of breast (principal) | CPT/HCPCS: 77063; 77067 ==